=== PATIENT | female | born 1965 | race Caucasian/White ===

== ENCOUNTER → 2023-05-02 15:11 | Outpatient (REF) | payer BC, SELFPAY | LOC: DHCBC MAIN 15:11 | PROVIDERS: ATTENDING PHYSICIAN Internal Medicine Cardiovascular Disease; FAMILY PHYSICIAN Family Medicine | DX: I70.8 Atherosclerosis of other arteries (principal); M31.4 Aortic arch syndrome [Takayasu] | CPT/HCPCS: 93306 ==

== ENCOUNTER → 2024-03-29 10:40 | Outpatient (REF) | payer BC, SELFPAY | LOC: PAVMRI 10:40 | PROVIDERS: ATTENDING PHYSICIAN Internal Medicine Rheumatology; FAMILY PHYSICIAN Family Medicine | DX: M31.4 Aortic arch syndrome [Takayasu] (principal) | CPT/HCPCS: 71555; A9585 ==